=== PATIENT | female | born 1980 | race Caucasian/White ===

== ENCOUNTER 2016-12-19 10:25 | Emergency (ER) | payer BC ==
[2016-12-19 12:17] VITALS: BP 117/77
--- NOTE | 2016-12-19 12:32 | UC ---
Respiratory Complaint HPI - HPI Summary HPI Summary: "I had a terrible cold, or whatever this is, running on two weeks now." Headache , "sinus pressure in the ears", "felt feverish", "yellow green" nasal congestion , PND, "big chunks" productive cough, decreased appetite, "some" diarrhea, myalgias, chills, sweats "at night especially", and tired for two weeks. No close contacts with similar symptoms. Patient is a cook. PCP JORGE ALBERTO Angela. - History of Current Complaint Chief Complaint: UCRespiratory Stated Complaint: COUGH,CONGESTION,FEVER Time Seen by Provider: 12/19/16 12:27 Hx Last Menstrual Period: 12/10/16-Present - Allergies/Home Medications Allergies/Adverse Reactions: Allergies Allergy/AdvReac Type Severity Reaction Status Date / Time No Known Allergies Allergy Verified 12/19/16 12:13 Home Medications: Home Medications Levothyroxine TAB* [Synthroid TAB*] 137 mcg PO DAILY 12/19/16 [History Confirmed 12/19/16] [id number]-[id number] [Vicks Dayquil/Nyquil Cold] 30 ml PO Q6H PRN [History Confirmed 12/19/16] PMH/Surg Hx/FS Hx/Imm Hx Previously Healthy: Yes Endocrine History Of: Reports: Thyroid Disease - Hypothyroidism - Surgical History Surgical History: None - Family History Known Family History: Positive: Hypertension - Social History Alcohol Use: Weekly Substance Use Type: None Smoking Status (MU): Never Smoked Tobacco - Immunization History Most Recent Influenza Vaccination: Not the Season Review of Systems Constitutional: Negative Skin: Negative Eyes: Negative ENT: Negative, Ear Ache, Nasal Discharge Respiratory: Cough Cardiovascular: Negative Gastrointestinal: Negative Genitourinary: Negative Motor: Negative Neurovascular: Negative Musculoskeletal: Negative Neurological: Negative Psychological: Negative All Other Systems Reviewed And Are Negative: Yes Physical Exam Triage Information Reviewed: Yes Appearance: Well-Appearing, No Pain Distress, Well-Nourished, Ill-Appearing - mild Vital Signs: Initial Vital Signs Temp 99.1 F 12/19/16 12:10 Pulse 74 12/19/16 12:10 Resp 16 12/19/16 12:10 BP 117/77 12/19/16 12:10 Pulse Ox 100 02/18/17 12:10 Vital Signs Reviewed: Yes Eye Exam: Normal ENT: Positive: Pharyngeal erythema - +PND, Nasal drainage, TMs normal, Other: - + maxillary and frontal tenderness b/l Dental Exam: Normal Neck exam: Normal Neck: Positive: Supple, Nontender, No Lymphadenopathy Respiratory Exam: Normal Respiratory: Positive: Lungs clear, Normal breath sounds, No respiratory distress, No accessory muscle use Cardiovascular: Positive: RRR, No Murmur, Pulses Normal, Brisk Capillary Refill Abdomen Description: Positive: Nontender, Soft Musculoskeletal Exam: Normal Neurological Exam: Normal Psychological Exam: Normal Skin Exam: Normal UC Diagnostic Evaluation - Laboratory O2 Sat by Pulse Oximetry: 100 Respiratory Course/Dx - Differential Dx/Diagnosis Differential Diagnosis/HQI/PQRI: Bronchitis, Laryngitis, Sinusitis Provider Diagnoses: sinusitis Discharge - Discharge Plan Condition: Stable Disposition: HOME Prescriptions: Amoxicillin (*) 875 mg PO BID #20 tab Patient Education Materials: Sinusitis (ED) Referrals: Non Staff,Doctor [Primary Care Provider] - Additional Instructions: Take a probiotic while you are on the antibiotic. OTC flonase or nasonex are recommended. tylenol/advil can help as well. Follow up with your PCP in 3-4 days.
== END 2016-12-19 12:58 | disposition home or self-care (01) ==
LOC: UCCORT 10:25
DX: J32.9 Chronic sinusitis, unspecified (principal); E03.9 Hypothyroidism, unspecified
CPT/HCPCS: 99202; G0463